=== PATIENT | male | born 1970 | race African-American/Black ===

== ENCOUNTER 2017-03-25 08:43 | Emergency (ER) | payer MEDICAID ==
[~2017-03-25] VITALS: Ht 162.6 cm; Wt 61.0 kg
[2017-03-25 11:00] VITALS: BP 135/79
[2017-03-25] MEDS ORDERED: MAGNESIUM/ALUMINUM HYDROXIDE/SIMETHICONE 30ML UDC PO STA (11:25)
[2017-03-25] MEDS ORDERED: VISCOUS LIDOCAINE 2% 15 ML UDC PO STA (11:25)
[2017-03-25 12:25] LABS: CLARITY URINE CLEAR (CLEAR); COLOR URINE YELLOW (YELLOW); GLUCOSE URINE NEGATIVE (NEGATIVE); KETONES URINE NEGATIVE (NEGATIVE); LEUKOCYTE ESTERASE URINE NEGATIVE (NEGATIVE); NITRITE URINE NEGATIVE (NEGATIVE); OCCULT BLOOD URINE NEGATIVE (NEGATIVE); PH URINE 5.5 (4.5-8.0); PROTEIN URINE NEGATIVE (NEGATIVE); UROBILINOGEN URINE 0.2 E.U./dL (0.2-1.0)
[2017-03-25 12:34] LABS: BASOPHILS % 0.8 % (0.0-2.0); EOSINOPHILS % 0.6 % (0.0-5.0); HEMATOCRIT. 42.7 % (42.0-52.0); HEMOGLOBIN. 14.1 g/dL (14.0-18.0); LYMPHOCYTES % 56.4 % (20.0-50.0); MEAN CORPUSCULAR HEMOGLOBIN 29.3 pg (28.0-32.0); MEAN CORPUSCULAR HGB CONC 33.1 g/dL (31.0-37.0); MEAN CORPUSCULAR VOLUME 88.6 fL (80.0-94.0); MEAN PLATELET VOLUME 7.1 fl (7.4-10.4); MONOCYTES % 6.1 % (2.0-8.0); NEUTROPHILS % 36.1 % (40.0-76.0); PLATELET 238 x1000/uL (130-400); RED BLOOD CELL COUNT 4.82 mill/uL (4.7-6.1); RED CELL DISTRIBUTION WIDTH 13.9 % (11.6-14.6); WHITE BLOOD COUNT 6.5 x1000/uL (4.5-11.0)
[2017-03-25 12:42] LABS: PROTHROMBIN TIME 10.5 sec
[2017-03-25 12:48] LABS: ALANINE AMINOTRANSFERASE 34 IU/L (13-61); ALBUMIN 3.6 g/dL (3.4-5.0); ANION GAP 12; CARBON DIOXIDE 30 mEq/L (21-32); CHLORIDE 104 mEq/L (98-107); INDEX HEMOLYSI 1 (1-3); INDEX ICTERIC 1 (1-4); INDEX LIPEMIC 1 (1-3); LIPASE 105 IU/L (73-393); UREA NITROGEN BLOOD 10 mg/dL (7-21); eGFR > 60 mL/min (>60)
== END 2017-03-25 14:02 | disposition home or self-care (01) ==
LOC: ER 11:38
DX: R10.9 Unspecified abdominal pain (principal); F17.210 Nicotine dependence, cigarettes, uncomplicated; Z87.11 Personal history of peptic ulcer disease
CPT/HCPCS: 36415; 74176; 80053; 81003; 83690; 85025; 85610; 99285

== ENCOUNTER 2021-08-03 10:40 | Emergency (ER) | payer MEDICAID, OTHER ==
[~2021-08-03] VITALS: Ht 162.6 cm; Wt 61.0 kg
[2021-08-03] MEDS ORDERED: HYDROCODONE/ACETAMINOPHEN 5/325MG TABLET PO ONE (11:00)
[2021-08-03] MEDS ORDERED: BACITRACIN ZINC OINT UDPKT TOP ONE (11:30)
[2021-08-03] MEDS ORDERED: TETANUS, DIPHTHERIA, PERTUSSIS VAC/PF 0.5ML (>7YR OLD) IM ONE (11:30)
[2021-08-03] MEDS ORDERED: LIDOCAINE HCL/PF 1% 10 MG/ML 5ML VIAL INFIL ONE (11:30)
[2021-08-03] MEDS ORDERED: IBUP-2029 MT (12:22)
[2021-08-03] MEDS ORDERED: BO1 TP (12:22)
[2021-08-03 12:57] VITALS: BP 132/87
== END 2021-08-03 12:58 | disposition home or self-care (01) ==
LOC: ER 10:40
DX: S91.112A Laceration without foreign body of left great toe without damage to nail, initial encounter (principal); F17.200 Nicotine dependence, unspecified, uncomplicated; X58.XXXA Exposure to other specified factors, initial encounter; Y93.89 Activity, other specified; Y92.89 Other specified places as the place of occurrence of the external cause; Y99.8 Other external cause status
CPT/HCPCS: 11730; 12001; 73630; 99284; A4217; J3490; Z7610

== ENCOUNTER 2021-08-06 12:42 | Emergency (ER) | payer OTHER ==
[~2021-08-06] VITALS: Ht 162.6 cm; Wt 62.0 kg
[~2021-08-06 12:42] MED LIST: BO1 TP; IBUP-2029 MT
[2021-08-06 13:02] VITALS: BP 113/72
[2021-08-06] MEDS ORDERED: TOPUD MT (13:22)
== END 2021-08-06 14:04 | disposition home or self-care (01) ==
LOC: ER 12:42
DX: Z48.00 Encounter for change or removal of nonsurgical wound dressing (principal)
CPT/HCPCS: 99282

== ENCOUNTER 2022-04-02 21:40 | Emergency (ER) | payer OTHER ==
[~2022-04-02] VITALS: Ht 162.6 cm; Wt 62.0 kg
[~2022-04-02 21:40] MED LIST changes: +TOPUD MT
[2022-04-02] MEDS ORDERED: KETOROLAC 60MG/2ML VIAL IM ONE (23:30)
[2022-04-03] MEDS ORDERED: IBUP-2029 MT (01:19)
[2022-04-03 01:36] VITALS: BP 134/74
== END 2022-04-03 01:39 | disposition home or self-care (01) ==
LOC: ER 21:40
DX: R51.9 Headache, unspecified (principal)
CPT/HCPCS: 70450; 96372; 99284; J1885